=== PATIENT | female | born 1980 | race African-American/Black ===

== ENCOUNTER 2016-11-01 07:55 | Emergency (ER) | payer BC ==
[~2016-11-01] VITALS: Ht 182.9 cm; Wt 98.6 kg
[2016-11-01] MEDS ORDERED: ESCITALOPRAM OXA5 MG PO (08:24)
[2016-11-01 08:41] LABS: INFLUENZA A VIRAL ANTIGEN NEGATIVE; INFLUENZA B VIRAL ANTIGEN POSITIVE
[2016-11-01] MEDS ORDERED: TESSALON200 MG PO (08:45)
[2016-11-01 08:58] VITALS: BP 98/59
== END 2016-11-01 08:55 | disposition home or self-care (01) ==
LOC: EME 07:55
DX: J10.1 Influenza due to other identified influenza virus with other respiratory manifestations (principal); F17.200 Nicotine dependence, unspecified, uncomplicated
CPT/HCPCS: 87502; 99281; 99284